=== PATIENT | female | born 1985 | race African-American/Black ===

== ENCOUNTER 2017-02-10 00:32 | Emergency (ER) | payer MEDICAID ==
[~2017-02-10] VITALS: Ht 162.6 cm; Wt 92.1 kg
[2017-02-10 00:59] VITALS: BP 144/94
[2017-02-10] MEDS ORDERED: LORazepam Inj 2mg/ml 1ml IM ONE (01:00)
[2017-02-10] MEDS ORDERED: MOBIC15 MG ORAL (01:35)
--- NOTE | 2017-02-10 01:36 | Emergency Room Report ---
History of Present Illness General Chief Complaint: Chest Pain Source: Patient Present Illness HPI Is a 31-year-old female with history anxiety. She presents with chief complaint of jaw pain and no chest pain. 2 days ago she was yawning and back pain the neck. It progressively gotten worse. Now she is anxious and worried. She is having some chest pain. Chest tightness. No fever or chills. No nausea vomiting. Worse with movement of her neck. Denies any other complaint. No exertional component. No diaphoresis. Allergies: Coded Allergies: No Known Allergies (Unverified , 02/10/17) Patient History Past Medical History: see triage record, old chart reviewed, psych hx Past Surgical History: none Pertinent Family History: none Social History: Denies: smoking Last Menstrual Period: LAST WEEK Now: No Immunizations: other Reviewed Nursing Documentation: PMH: Agreed, PSxH: Agreed Nursing Documentation-PMH Past Medical History: No Stated History Review of Systems Eye: Denies: blurred vision, eye pain ENT: Denies: ear pain, nose congestion, throat swelling Respiratory: Denies: cough, shortness of breath Cardiovascular: Reports: chest pain, Denies: palpitations Gastrointestinal: Denies: abdominal pain, diarrhea, nausea, vomiting Musculoskeletal: Denies: back pain, joint pain Skin: Denies: rash Neurological: Denies: headache, numbness Endocrine: Denies: increased thirst, increased urine Hematologic/Lymphatic: Denies: easy bruising All Other Systems: negative except mentioned in HPI Physical Exam Vital Signs Date Time Temp Pulse Resp B/P Pulse Ox O2 Delivery O2 Flow Rate FiO2 02/10/17 00:36 98.2 93 18 162/87 100 Room Air vitals normal except for hypertension Sp02 EP Interpretation: reviewed, normal General Appearance: well appearing, no apparent distress, alert Head: normocephalic, atraumatic Eyes: bilateral eye EOMI, bilateral eye PERRL ENT: hearing grossly normal, normal pharynx Neck: full range of motion, supple, no meningismus, tender - Along the lateral neck muscle Respiratory: chest non-tender, lungs clear, normal breath sounds Cardiovascular #1: regular rate, rhythm, no murmur Gastrointestinal: normal bowel sounds, non tender, no mass, no organomegaly, no bruit, non-distended Musculoskeletal: back normal, gait/station normal, normal range of motion Psychiatric: anxious Skin: warm/dry Medical Decision Making Diagnostic Impression: Primary Impression: Chest pain Qualified Codes: R07.9 - Chest pain, unspecified Additional Impressions: Neck pain on left side Anxiety ER Course Patient with chest pain and neck pain. No evidence of trauma. No evidence of ACS, PE, dissection. Worsened by anxiety. Better after Ativan. We'll discharge home. EKG Diagnostic Results Rate: normal Rhythm: NSR ST Segments: no acute changes Rhythm Strip Diag. Results EP Interpretation: yes Rate: 80 Rhythm: NSR, no PVC's, no ectopy Last Vital Signs Date Time Temp Pulse Resp B/P Pulse Ox O2 Delivery O2 Flow Rate FiO2 02/10/17 00:59 98.2 85 29 144/94 100 Room Air Status: improved Disposition: HOME, SELF-CARE Condition: Stable Scripts Meloxicam* (MOBIC*) 15 Mg Tablet 15 MG ORAL DAILY, #30 TAB 0 Refills Prov: CLARA DALTON M.D. 02/10/17 Additional Instructions: Followup with your DrSergey in 7 days. Return if worse. CLARA DALTON M.D. February 10, 2017 01:36
[2017-02-10 01:44] VITALS: BP 144/94
== END 2017-02-10 01:24 | disposition home or self-care (01) ==
LOC: EMR 00:55
DX: R07.9 Chest pain, unspecified (principal); M54.2 Cervicalgia; F41.9 Anxiety disorder, unspecified; R68.84 Jaw pain
CPT/HCPCS: 93005; 96372; 99283

== ENCOUNTER 2018-07-05 16:09 | Inpatient (IN) | payer MEDICAID ==
[~2018-07-05] VITALS: Ht 162.6 cm; Wt 81.6 kg
[~2018-07-05 16:09] MED LIST: MOBIC15 MG ORAL
[2018-07-05] MEDS ORDERED: Morphine Sulfate 2mg/ml Inj IVP ONE ×2 (16:30→20:30)
[2018-07-05 16:52] LABS: APPEARANCE,URINE CLEAR; BILIRUBIN, URINE NEGATIVE (NEGATIVE); COLOR,URINE PALE YELLOW; GLUCOSE, URINE (UA) NEGATIVE (NEGATIVE); KETONES,URINE NEGATIVE (NEGATIVE); LEUKOCYTE ESTERASE ,URINE NEGATIVE (NEGATIVE); NITRITE,URINE NEGATIVE (NEGATIVE); PH,URINE 7 (4.5-8.0); PROTEIN,URINE NEGATIVE (NEGATIVE); UROBILINOGEN,URINE NORMAL MG/DL (0.0-1.0)
[2018-07-05 16:56] LABS: BASOPHILS % (AUTO) 1.6 % (0.0-2.0); EOSINOPHILS % (AUTO) 0.3 % (0.0-3.0); HEMATOCRIT 37.5 % (37.0-47.0); HEMOGLOBIN 12.3 G/DL (12.0-16.0); LYMPHOCYTES % (AUTO) 12.5 % (20.0-45.0); MEAN CORPUSCULAR VOLUME 81 FL (80-99); MONOCYTES % (AUTO) 4.4 % (1.0-10.0); NEUTROPHILS % (AUTO) 81.3 % (45.0-75.0); PLATELET COUNT 317 K/UL (150-450); RED BLOOD COUNT 4.65 M/UL (4.20-5.40); RED CELL DISTRIBUTION WIDTH 11.9 % (11.6-14.8); WHITE BLOOD COUNT 13.9 K/UL (4.8-10.8)
[2018-07-05 17:08] LABS: ANION GAP 8 mmol/L (5-15); BLOOD UREA NITROGEN 8 mg/dL (7-18); CARBON DIOXIDE 25 MMOL/L (21-32); CHLORIDE 102 MMOL/L (98-107); CREATININE 0.9 MG/DL (0.55-1.30); POTASSIUM 3.4 MMOL/L (3.5-5.1); SODIUM 135 MMOL/L (136-145)
[2018-07-05 17:15] LABS: ALANINE AMINOTRANSFERASE 19 U/L (12-78); ALBUMIN 3.8 G/DL (3.4-5.0); ALBUMIN/GLOBULIN RATIO 0.9 (1.0-2.7); ALKALINE PHOSPHATASE 53 U/L (46-116); ASPARTATE AMINO TRANSFERASE 14 U/L (15-37); BILIRUBIN,TOTAL 0.7 MG/DL (0.2-1.0)
[2018-07-05 17:25] VITALS: BP 125/81
--- NOTE | 2018-07-05 18:15 | Emergency Room Report ---
History of Present Illness General Chief Complaint: Abdominal Pain Source: Patient Present Illness HPI Patient presents emergency department today complaint suprapubic and left upper quadrant abdominal pain. Patient states that she hasn't felt well since today. She feels like the pain is pulling. Seems to be worsened movement. She denies any diarrhea nausea vomiting diarrhea or chills. Denies any dysuria or urinary frequency. Denies having vaginal bleeding or vaginal discharge. She states that she had her period about a week ago. Patient is . No prior history of surgery.No other modifying factors. No other associated signs and symptoms. No other complaints were noted. Allergies: Coded Allergies: No Known Allergies (Unverified , 07/05/18) Patient History Past Medical History: none Past Surgical History: none Pertinent Family History: none Social History: Denies: smoking, alcohol use, drug use Last Menstrual Period: Jun 27, 2018 Reviewed Nursing Documentation: PMH: Agreed; PSxH: Agreed Nursing Documentation-PMH Past Medical History: No Stated History Review of Systems All Other Systems: negative except mentioned in HPI Physical Exam Vital Signs Date Time Temp Pulse Resp B/P (MAP) Pulse Ox O2 Delivery O2 Flow Rate FiO2 07/05/18 16:12 98.9 102 15 149/90 99 Room Air 99.0 Sp02 EP Interpretation: reviewed, normal General Appearance: normal inspection, well appearing, no apparent distress, alert Head: atraumatic Eyes: bilateral eye normal inspection ENT: normal ENT inspection, hearing grossly normal, normal voice Neck: normal inspection, full range of motion, supple, no bony tend Respiratory: normal inspection, lungs clear, normal breath sounds, no respiratory distress, no retraction, no wheezing Cardiovascular #1: regular rate, rhythm, no edema Gastrointestinal: normal inspection, normal bowel sounds, soft, no guarding, no hernia, tenderness - Right lower quadrant, Suprapubic left lower quadrant, left upper quadrant Genitourinary: no CVA tenderness Musculoskeletal: normal inspection, back normal, normal range of motion Neurologic: normal inspection, alert, responsive, speech normal Psychiatric: normal inspection, judgement/insight normal, mood/affect normal Skin: normal inspection, normal color, no rash Medical Decision Making Diagnostic Impression: Primary Impression: Appendicitis ER Course Patient presents to the emergency department today complaining of abdominal pain. Differential considerations include acute pancreatitis, cholecystitis, gastritis, hepatitis, appendicitis just to name a few. Given the severity of the patient's presentation I felt this is a highly complex patient. This patient required extensive workup. Patient laboratory workup shows an elevated white blood cell count. Patient's exam concerning for appendicitis. CAT scan was performed which was positive appendicitis. Patient was given Zosyn. Case was discussed with Dr. Corrales and will admit Steve. Case discussed with patient insurance Dr. Khan. Admit Yumi. Labs Test 07/05/18 16:45 White Blood Count 13.9 K/UL (4.8-10.8) Red Blood Count 4.65 M/UL (4.20-5.40) Hemoglobin 12.3 G/DL (12.0-16.0) Hematocrit 37.5 % (37.0-47.0) Mean Corpuscular Volume 81 FL (80-99) Mean Corpuscular Hemoglobin 26.5 PG (27.0-31.0) Mean Corpuscular Hemoglobin Concent 32.8 G/DL (32.0-36.0) Red Cell Distribution Width 11.9 % (11.6-14.8) Platelet Count 317 K/UL (150-450) Mean Platelet Volume 7.4 FL (6.5-10.1) Neutrophils (%) (Auto) 81.3 % (45.0-75.0) Lymphocytes (%) (Auto) 12.5 % (20.0-45.0) Monocytes (%) (Auto) 4.4 % (1.0-10.0) Eosinophils (%) (Auto) 0.3 % (0.0-3.0) Basophils (%) (Auto) 1.6 % (0.0-2.0) Urine Color Pale yellow Urine Appearance Clear Urine pH 7 (4.5-8.0) Urine Specific [place] 1.005 (1.005-1.035) Urine Protein Negative (NEGATIVE) Urine Glucose (UA) Negative (NEGATIVE) Urine Ketones Negative (NEGATIVE) Urine Blood Negative (NEGATIVE) Urine Nitrite Negative (NEGATIVE) Urine Bilirubin Negative (NEGATIVE) Urine Urobilinogen Normal MG/DL (0.0-1.0) Urine Leukocyte Esterase Negative (NEGATIVE) Urine HCG, Qualitative Negative (NEGATIVE) Sodium Level 135 MMOL/L (136-145) Potassium Level 3.4 MMOL/L (3.5-5.1) Chloride Level 102 MMOL/L (98-107) Carbon Dioxide Level 25 MMOL/L (21-32) Anion Gap 8 mmol/L (5-15) Blood Urea Nitrogen 8 mg/dL (7-18) Creatinine 0.9 MG/DL (0.55-1.30) Estimat Glomerular Filtration Rate > 60 mL/min (>60) Glucose Level 113 MG/DL (74-106) Calcium Level 9.0 MG/DL (8.5-10.1) Total Bilirubin 0.7 MG/DL (0.2-1.0) Aspartate Amino Transf (AST/SGOT) 14 U/L (15-37) Alanine Aminotransferase (ALT/SGPT) 19 U/L (12-78) Alkaline Phosphatase 53 U/L (46-116) Total Protein 8.0 G/DL (6.4-8.2) Albumin 3.8 G/DL (3.4-5.0) Globulin 4.2 g/dL Albumin/Globulin Ratio 0.9 (1.0-2.7) Lipase 101 U/L (73-393) CT/MRI/US Diagnostic Results CT/MRI/US Diagnostic Results : Imaging Test Ordered: Positive appendicitisOn CT scan Last Vital Signs Date Time Temp Pulse Resp B/P (MAP) Pulse Ox O2 Delivery O2 Flow Rate FiO2 07/05/18 17:25 98.0 89 15 125/81 99 Room Air 98.0 Status: improved Disposition: ADMITTED INPATIENT Condition: Serious Referrals: NGHIA RODRIGUEZ,REFERRING (PCP) Eric Awan MD Jul 05, 2018 18:15
[2018-07-05] MEDS ORDERED: Piperacillin/Tazobactam 3.375 GM in NS 110 ML IVPB ONE (18:45)
[2018-07-05 18:52] VITALS: BP 109/71
[2018-07-05] MEDS ORDERED: TYLENOL EXTRA500 MG ORAL (19:02)
[2018-07-05] MEDS ORDERED: TUMS200 M1 PO (19:04)
[2018-07-05] MEDS ORDERED: Morphine Sulfate 2mg/ml Inj ONE (20:06)
[2018-07-05 21:00] VITALS: BP 108/51
[2018-07-05 21:15] VITALS: BP 125/80
[2018-07-05] MEDS ORDERED: D5 1/2NS 1,000 ML IV SCH (22:00)
[2018-07-05] MEDS ORDERED: Morphine Sulfate 2mg/ml Inj IVP PRN (23:15)
[2018-07-06] VITALS (12 sets, daily range): BP systolic 96–133; BP diastolic 53–94
[2018-07-06] MEDS: Piperacillin/Tazobactam 3.375 GM in D5W 110 ML IVPB SCH ×3 (02:52→20:19)
[2018-07-06] MEDS ORDERED: Hydromorphone 0.5mg/0.5ml inj IVP PRN (06:45)
[2018-07-06] MEDS ORDERED: Metoclopramide 10mg/2ml Inj IVP PRN (06:45)
[2018-07-06] MEDS ORDERED: fentaNYL 100 mcg/2 mL IV PRN (06:45)
--- NOTE | 2018-07-06 06:48 | Anethesia Preoperative Eval ---
Anesthesia Pre-op PMH/ROS General Date of Evaluation: Jul 06, 2018 Time of Evaluation: 06:47 Anesthesiologist: parviz ASA Score: ASA 2 Mallampati Score Class I : Soft palate, uvula, fauces, pillars visible Class II: Soft palate, uvula, fauces visible Class III: Soft palate, base of uvula visible Class IV: Only hard plate visible Mallampati Classification: Class II Surgeon: buddy Diagnosis: appendicitis Surgical Procedure: lap appendectomy Anesthesia History: none Family History: no anesthesia problems Allergies: Coded Allergies: No Known Allergies (Unverified , 07/05/18) Medications: see eMAR Patient NPO?: Yes NPO Date: Jul 06, 2018 NPO Time: 0000 Past Medical History Cardiovascular: Denies: HTN, CAD, PA, valve dz, arrhythmia, other Pulmonary: Denies: asthma, COPD, SILAS, other Gastrointestinal/Genitourinary: Denies: GERD, CRI, ESRD, other Neurologic/Psychiatric: Denies: dementia, CVA, depression/anxiety, TIA, other Endocrine: Denies: DM, hypothyroidism, steroids, other HEENT: Denies: cataract (L), cataract (R), glaucoma, [place] (L), [place] (R), other Hematology/Immune: Denies: anemia, DVT, bleeding disorder, other Musculoskeletal/Integumentary: Denies: OA, RA, DJD, DDD, edema, other PSxH Narrative: denies Anesthesia Pre-op Phys. Exam Physician Exam Last Vital Signs Date Time Temp Pulse Resp B/P (MAP) Pulse Ox O2 Delivery O2 Flow Rate FiO2 07/06/18 04:00 97.8 71 19 109/53 (71) 97 97.8 07/05/18 21:48 Room Air Constitutional: NAD Neurologic: CN 2-12 intact Cardiovascular: RRR Respiratory: CTA Gastrointestinal: S/NT/ND Airway Exam Mallampati Classification 2 Mallampati Score: Class II MO: full ROM: full Dentures: no upper, no lower Anesthesia Pre-op A/P Labs Hematology Test 07/05/18 16:45 White Blood Count 13.9 K/UL (4.8-10.8) H Red Blood Count 4.65 M/UL (4.20-5.40) Hemoglobin 12.3 G/DL (12.0-16.0) Hematocrit 37.5 % (37.0-47.0) Mean Corpuscular Volume 81 FL (80-99) Mean Corpuscular Hemoglobin 26.5 PG (27.0-31.0) L Mean Corpuscular Hemoglobin Concent 32.8 G/DL (32.0-36.0) Red Cell Distribution Width 11.9 % (11.6-14.8) Platelet Count 317 K/UL (150-450) Mean Platelet Volume 7.4 FL (6.5-10.1) Neutrophils (%) (Auto) 81.3 % (45.0-75.0) H Lymphocytes (%) (Auto) 12.5 % (20.0-45.0) L Monocytes (%) (Auto) 4.4 % (1.0-10.0) Eosinophils (%) (Auto) 0.3 % (0.0-3.0) Basophils (%) (Auto) 1.6 % (0.0-2.0) Chemistry Test 07/05/18 16:45 Sodium Level 135 MMOL/L (136-145) L Potassium Level 3.4 MMOL/L (3.5-5.1) L Chloride Level 102 MMOL/L (98-107) Carbon Dioxide Level 25 MMOL/L (21-32) Anion Gap 8 mmol/L (5-15) Blood Urea Nitrogen 8 mg/dL (7-18) Creatinine 0.9 MG/DL (0.55-1.30) Estimat Glomerular Filtration Rate > 60 mL/min (>60) Glucose Level 113 MG/DL (74-106) H Calcium Level 9.0 MG/DL (8.5-10.1) Total Bilirubin 0.7 MG/DL (0.2-1.0) Aspartate Amino Transf (AST/SGOT) 14 U/L (15-37) L Alanine Aminotransferase (ALT/SGPT) 19 U/L (12-78) Alkaline Phosphatase 53 U/L (46-116) Total Protein 8.0 G/DL (6.4-8.2) Albumin 3.8 G/DL (3.4-5.0) Globulin 4.2 g/dL Albumin/Globulin Ratio 0.9 (1.0-2.7) L Lipase 101 U/L (73-393) Urine Test Test 07/05/18 16:45 Urine HCG, Qualitative Negative (NEGATIVE) Studies Pre-op Studies: EKG - sr Risk Assessment & Plan Plan: general Status Change Before Surgery: No Pre-Antibiotics Drug: ancef Given Within 1 Hr of Incision: Yes Time Given: 07:05 Heather Hayward CRNA Jul 06, 2018 06:48
[2018-07-06] MEDS ORDERED: Zemuron 50mg/5ml Inj IV ONE (06:51)
[2018-07-06] MEDS ORDERED: Bupivacaine w/Epi 0.25% 30ml Vial INJ ONE (06:56)
--- NOTE | 2018-07-06 07:09 | Consultation ---
History of Present Illness General Date patient seen: Jul 06, 2018 Chief Complaint: Abdominal Pain Reason for Consultation: acute appendicitis Present Illness HPI 32 year old otherwise healthy female presented to ED with complaints of worsening abdominal pain. States pain began at 5am yesterday morning as mid/ llq abdominal pain. Initially believed it to be gas but as pain worsening it began to migrate to the RLQ. As pain did not improve she came to ED for evaluation. In ED noted to have leukocytosis and CT scan demonstrated appendicitis. surgery called to evaluate. patient seen, chart reviewed, patient examined. Allergies: Coded Allergies: No Known Allergies (Unverified , 07/05/18) Medication History Scheduled Acetaminophen* (Tylenol Extra Strength*), 500 MG ORAL PRN, (Reported) Calcium Carbonate (Tums), Unknown Dose PO PRN, (Reported) Discontinued Medications Meloxicam* (Mobic*), 15 MG ORAL DAILY Discontinued Reason: Therapy completed Patient History History Provided By: Patient, Medical Record, PMD Healthcare decision maker Resuscitation status Advanced Directive on File Past Medical/Surgical History Past Medical/Surgical History: (1) Appendicitis Review of Systems All Other Systems: negative except mentioned in HPI Physical Exam General Appearance: no apparent distress, alert Lines, tubes and drains: peripheral HEENT: normocephalic, atraumatic, mucous membranes moist Neck: normal inspection Respiratory/Chest: normal breath sounds, no respiratory distress, no accessory muscle use Cardiovascular/Chest: normal rate, regular rhythm Abdomen: soft, no organomegaly, no mass, tender Extremities: normal inspection, no calf tenderness Skin Exam: normal pigmentation, warm/dry Neurologic: alert, oriented x 3, responsive Last 24 Hour Vital Signs Date Time Temp Pulse Resp B/P (MAP) Pulse Ox O2 Delivery O2 Flow Rate FiO2 07/06/18 04:00 97.8 71 19 109/53 (71) 97 97.8 07/06/18 00:00 98.7 96 20 133/83 (100) 100 98.7 07/05/18 21:48 Room Air 07/05/18 21:15 98.5 73 19 125/80 (95) 100 98.5 07/05/18 21:00 98.5 85 19 108/51 99 Room Air 98.5 07/05/18 21:00 98.5 85 19 108/51 99 Room Air 208.4 10/16/18 20:51 98.0 07/05/18 18:52 98.0 90 19 109/71 99 Room Air 98.0 07/05/18 18:51 98.0 07/05/18 17:25 98.0 89 15 125/81 99 Room Air 98.0 07/05/18 16:48 98.9 07/05/18 16:12 98.9 102 15 149/90 99 Room Air 99.0 Intake and Output 07/05/18 07/06/18 19:00 07:00 Intake Total 282.5 ml Balance 282.5 ml Intake IV Total 282.5 ml # Voids 1 3 Laboratory Tests Test 07/05/18 16:45 White Blood Count 13.9 K/UL (4.8-10.8) H Red Blood Count 4.65 M/UL (4.20-5.40) Hemoglobin 12.3 G/DL (12.0-16.0) Hematocrit 37.5 % (37.0-47.0) Mean Corpuscular Volume 81 FL (80-99) Mean Corpuscular Hemoglobin 26.5 PG (27.0-31.0) L Mean Corpuscular Hemoglobin Concent 32.8 G/DL (32.0-36.0) Red Cell Distribution Width 11.9 % (11.6-14.8) Platelet Count 317 K/UL (150-450) Mean Platelet Volume 7.4 FL (6.5-10.1) Neutrophils (%) (Auto) 81.3 % (45.0-75.0) H Lymphocytes (%) (Auto) 12.5 % (20.0-45.0) L Monocytes (%) (Auto) 4.4 % (1.0-10.0) Eosinophils (%) (Auto) 0.3 % (0.0-3.0) Basophils (%) (Auto) 1.6 % (0.0-2.0) Urine Color Pale yellow Urine Appearance Clear Urine pH 7 (4.5-8.0) Urine Specific [place] 1.005 (1.005-1.035) Urine Protein Negative (NEGATIVE) Urine Glucose (UA) Negative (NEGATIVE) Urine Ketones Negative (NEGATIVE) Urine Blood Negative (NEGATIVE) Urine Nitrite Negative (NEGATIVE) Urine Bilirubin Negative (NEGATIVE) Urine Urobilinogen Normal MG/DL (0.0-1.0) Urine Leukocyte Esterase Negative (NEGATIVE) Urine HCG, Qualitative Negative (NEGATIVE) Sodium Level 135 MMOL/L (136-145) L Potassium Level 3.4 MMOL/L (3.5-5.1) L Chloride Level 102 MMOL/L (98-107) Carbon Dioxide Level 25 MMOL/L (21-32) Anion Gap 8 mmol/L (5-15) Blood Urea Nitrogen 8 mg/dL (7-18) Creatinine 0.9 MG/DL (0.55-1.30) Estimat Glomerular Filtration Rate > 60 mL/min (>60) Glucose Level 113 MG/DL (74-106) H Calcium Level 9.0 MG/DL (8.5-10.1) Total Bilirubin 0.7 MG/DL (0.2-1.0) Aspartate Amino Transf (AST/SGOT) 14 U/L (15-37) L Alanine Aminotransferase (ALT/SGPT) 19 U/L (12-78) Alkaline Phosphatase 53 U/L (46-116) Total Protein 8.0 G/DL (6.4-8.2) Albumin 3.8 G/DL (3.4-5.0) Globulin 4.2 g/dL Albumin/Globulin Ratio 0.9 (1.0-2.7) L Lipase 101 U/L (73-393) Height (Feet): 5 Height (Inches): 4.00 Weight (Pounds): 180 Medications Current Medications Medications (Trade) Dose Ordered Sig/[place] Route PRN Reason Start Time Stop Time Status Last Admin Dose Admin Acetaminophen (Tylenol) 650 mg Q4H PRN ORAL Mild Pain/Temp > 100.5 07/05/18 22:00 08/04/18 21:59 Dextrose/Sodium Chloride 1,000 ml @ 100 mls/hr Q10H IV 07/06/18 00:00 08/05/18 21:59 07/06/18 00:00 Fentanyl Citrate (Sublimaze 100 mcg/2 mL) 25 mcg Q10M PRN IV Moderate Pain (Pain Scale 4-6) 07/06/18 06:45 07/06/18 15:00 Hydromorphone HCl (Dilaudid) 0.5 mg Q15M PRN IVP Severe Pain (Pain Scale 7-10) 07/06/18 06:45 07/06/18 15:00 Metoclopramide HCl (Reglan) 10 mg Q1H PRN IVP Nausea & Vomiting 07/06/18 06:45 07/06/18 15:00 Morphine Sulfate (Morphine Sulfate) 2 mg Q4H PRN IVP For Pain 07/05/18 23:15 07/12/18 23:14 07/06/18 03:00 Ondansetron HCl (Zofran) 4 mg Q1H PRN IVP Nausea & Vomiting 07/06/18 06:45 07/06/18 15:00 Ondansetron HCl (Zofran) 4 mg Q6H PRN IVP Nausea & Vomiting 07/05/18 23:15 08/04/18 23:14 Piperacillin Sod/ Tazobactam Sod 3.375 gm/Dextrose 110 ml @ 27.5 mls/hr Q8H IVPB 07/06/18 03:00 07/13/18 02:59 07/06/18 02:52 Assessment/Plan Problem List: (1) Appendicitis Assessment & Plan: 32F acute appendicitis. afebrile, HD stable, labs noted, CT noted, exam as above NPO IV fluids To OR for lap vs open appy consent thank you ICD Codes: K37 - Unspecified appendicitis SNOMED: [id number] Qualifiers: Qualified Codes: K35.3 - Acute appendicitis with localized peritonitis Status: stable Camilo Corrales Jul 06, 2018 07:09
--- NOTE | 2018-07-06 07:10 | Pre-Procedure Note/Attestation ---
Pre-Procedure Note/Attestation Complete Prior to Procedure Planned Procedure: not applicable Procedure Narrative: laparoscopic possible open appendectomy Indications for Procedure Pre-Operative Diagnosis: acute appendicitis Attestation I attest that I discussed the nature of the procedure; its benefits; risks and complications; and alternatives (and the risks and benefits of such alternatives ), prior to the procedure, with the patient (or the patient's legal sales representative consultant). I attest that, if there was a reasonable possibility of needing a blood transfusion, the patient (or the patient's legal sales representative consultant) was given the [facility] standardized written summary, pursuant to the [place] Blood Safety Act ([place] Health and Safety Code # 1645, as amended). I attest that I re-evaluated the patient just prior to the surgery and that there has been no change in the patient's H&P, except as documented below: Camilo Corrales Jul 06, 2018 07:10
[2018-07-06] MEDS ORDERED: fentaNYL 100 mcg/2 mL IV ONE ×2 (07:22→07:33)
[2018-07-06] MEDS ORDERED: Propofol 200mg/20ml IV ONE (07:40)
[2018-07-06] MEDS ORDERED: Ketorolac 30mg Inj ONE (07:40)
[2018-07-06] MEDS ORDERED: Metoclopramide 10mg/2ml Inj ONE (07:40)
[2018-07-06] MEDS ORDERED: Lidocaine 1% MPF 10mg/ml 5ml ONE (07:40)
[2018-07-06] MEDS ORDERED: Glycopyrrolate 0.2mg/ml 1ml Vial ONE (08:05)
[2018-07-06] MEDS ORDERED: Neostigmine 1mg/ml 10ml Inj ONE (08:05)
--- NOTE | 2018-07-06 08:33 | Brief Operative Note ---
Immediate Post Operative Note Operative Note Pre-op Diagnosis: acute appendicitis Procedure: laparoscopic appendectomy Post-op Diagnosis: same as pre-op Surgeon: coral Anesthesiologist: Sierra Romero Anesthesia: general Specimen: yes Complications: none Condition: stable Fluids: see records Estimated Blood Loss: minimal Drains: none Implant(s) used?: No Camilo Corrales Jul 06, 2018 08:33
--- NOTE | 2018-07-06 08:36 | Immediate Post-Op Evaluation ---
Immediate Post-Op Evalulation Immediate Post-Op Evalulation Procedure: Laparoscopic appendectomy Date of Evaluation: Jul 06, 2018 Time of Evaluation: 08:25 IV Fluids: LR 1000ml Estimated Blood Loss: 10 Urinary Output: no rosas Blood Pressure Systolic: 096 Blood Pressure Diastolic: 63 Pulse Rate: 94 Respiratory Rate: 23 O2 Sat by Pulse Oximetry: 99 Temperature (Fahrenheit): 98.7 Pain Score (1-10): 2 Nausea: No Vomiting: No Complications none Patient Status: awake, reacts, patent, extubated Hydration Status: adequate Drug: cefazolin 2 gm Given Within 1 Hr of Incision: Yes Time Given: 07:10 Luana Christianson CRNA Jul 06, 2018 08:36
[2018-07-06] MEDS ORDERED: Milk of Magnesia 30ml Ud ORAL PRN (08:45)
[2018-07-06] MEDS ORDERED: Morphine Sulfate 2mg/ml Inj IVP PRN ×2 (08:45)
[2018-07-06] MEDS ORDERED: Ketorolac 30mg Inj IV PRN (08:45)
[2018-07-06] MEDS ORDERED: Morphine Sulfate 4mg/ml Inj (IV/IM USE ONLY) IVP PRN (08:45)
[2018-07-06] MEDS ORDERED: DiphenhydrAMINE 50mg/ml Inj IVP PRN (08:45)
[2018-07-06] MEDS ORDERED: HYDROcodone/Acetamin 10/325 tab ORAL PRN (08:45)
[2018-07-06] MEDS ORDERED: Norco 5mg/325mg tab ORAL PRN (08:45)
--- NOTE | 2018-07-06 08:56 | Consultation ---
History of Present Illness General Date patient seen: Jul 06, 2018 Present Illness Allergies: Coded Allergies: No Known Allergies (Unverified , 07/05/18) Medication History Scheduled Acetaminophen* (Tylenol Extra Strength*), 500 MG ORAL PRN, (Reported) Calcium Carbonate (Tums), Unknown Dose PO PRN, (Reported) Discontinued Medications Meloxicam* (Mobic*), 15 MG ORAL DAILY Discontinued Reason: Therapy completed Patient History Healthcare decision maker Resuscitation status Advanced Directive on File Physical Exam Last 24 Hour Vital Signs Date Time Temp Pulse Resp B/P (MAP) Pulse Ox O2 Delivery O2 Flow Rate FiO2 07/06/18 08:45 85 18 114/66 100 Room Air 07/06/18 08:36 209.7 94 23 99 07/06/18 08:35 85 20 112/66 100 Simple Mask 6 07/06/18 08:30 89 21 108/64 100 Simple Mask 6 07/06/18 08:24 98.2 94 23 96/63 100 Simple Mask 6 98.2 07/06/18 04:00 97.8 71 19 109/53 (71) 97 97.8 07/06/18 00:00 98.7 96 20 133/83 (100) 100 98.7 07/05/18 21:48 Room Air 07/05/18 21:15 98.5 73 19 125/80 (95) 100 98.5 07/05/18 21:00 98.5 85 19 108/51 99 Room Air 98.5 07/05/18 21:00 98.5 85 19 108/51 99 Room Air 208.4 07/05/18 20:51 98.0 07/05/18 18:52 98.0 90 19 109/71 99 Room Air 98.0 07/05/18 18:51 98.0 07/05/18 17:25 98.0 89 15 125/81 99 Room Air 98.0 07/05/18 16:48 98.9 07/05/18 16:12 98.9 102 15 149/90 99 Room Air 99.0 Intake and Output 07/05/18 07/06/18 19:00 07:00 Intake Total 282.5 ml Balance 282.5 ml Intake IV Total 282.5 ml # Voids 1 3 Laboratory Tests Test 07/05/18 16:45 White Blood Count 13.9 K/UL (4.8-10.8) H Red Blood Count 4.65 M/UL (4.20-5.40) Hemoglobin 12.3 G/DL (12.0-16.0) Hematocrit 37.5 % (37.0-47.0) Mean Corpuscular Volume 81 FL (80-99) Mean Corpuscular Hemoglobin 26.5 PG (27.0-31.0) L Mean Corpuscular Hemoglobin Concent 32.8 G/DL (32.0-36.0) Red Cell Distribution Width 11.9 % (11.6-14.8) Platelet Count 317 K/UL (150-450) Mean Platelet Volume 7.4 FL (6.5-10.1) Neutrophils (%) (Auto) 81.3 % (45.0-75.0) H Lymphocytes (%) (Auto) 12.5 % (20.0-45.0) L Monocytes (%) (Auto) 4.4 % (1.0-10.0) Eosinophils (%) (Auto) 0.3 % (0.0-3.0) Basophils (%) (Auto) 1.6 % (0.0-2.0) Urine Color Pale yellow Urine Appearance Clear Urine pH 7 (4.5-8.0) Urine Specific [place] 1.005 (1.005-1.035) Urine Protein Negative (NEGATIVE) Urine Glucose (UA) Negative (NEGATIVE) Urine Ketones Negative (NEGATIVE) Urine Blood Negative (NEGATIVE) Urine Nitrite Negative (NEGATIVE) Urine Bilirubin Negative (NEGATIVE) Urine Urobilinogen Normal MG/DL (0.0-1.0) Urine Leukocyte Esterase Negative (NEGATIVE) Urine HCG, Qualitative Negative (NEGATIVE) Sodium Level 135 MMOL/L (136-145) L Potassium Level 3.4 MMOL/L (3.5-5.1) L Chloride Level 102 MMOL/L (98-107) Carbon Dioxide Level 25 MMOL/L (21-32) Anion Gap 8 mmol/L (5-15) Blood Urea Nitrogen 8 mg/dL (7-18) Creatinine 0.9 MG/DL (0.55-1.30) Estimat Glomerular Filtration Rate > 60 mL/min (>60) Glucose Level 113 MG/DL (74-106) H Calcium Level 9.0 MG/DL (8.5-10.1) Total Bilirubin 0.7 MG/DL (0.2-1.0) Aspartate Amino Transf (AST/SGOT) 14 U/L (15-37) L Alanine Aminotransferase (ALT/SGPT) 19 U/L (12-78) Alkaline Phosphatase 53 U/L (46-116) Total Protein 8.0 G/DL (6.4-8.2) Albumin 3.8 G/DL (3.4-5.0) Globulin 4.2 g/dL Albumin/Globulin Ratio 0.9 (1.0-2.7) L Lipase 101 U/L (73-393) Height (Feet): 5 Height (Inches): 4.00 Weight (Pounds): 180 Medications Current Medications Medications (Trade) Dose Ordered Sig/Roldan Route PRN Reason Start Time Stop Time Status Last Admin Dose Admin Acetaminophen (Tylenol) 650 mg Q4H PRN ORAL Mild Pain/Temp > 100.5 07/05/18 22:00 08/04/18 21:59 Acetaminophen/ Hydrocodone Bitart ([place] 10/325) 1 tab Q4H PRN ORAL Severe Pain (Pain Scale 7-10) 07/06/18 08:45 07/13/18 08:44 Acetaminophen/ Hydrocodone Bitart ([place] 5/325) 1 tab Q4H PRN ORAL Moderate Pain (Pain Scale 4-6) 07/06/18 08:45 07/13/18 08:44 Al Hydroxide/Mg Hydroxide (Mylanta) 15 ml Q6H PRN ORAL DYSPEPSIA 07/06/18 08:45 08/05/18 08:44 Dextrose/Sodium Chloride 1,000 ml @ 100 mls/hr Q10H IV 07/06/18 00:00 08/05/18 21:59 07/06/18 00:00 Diphenhydramine HCl (Benadryl) 12.5 mg Q6H PRN IVP Itching/Pruritis 07/06/18 08:45 08/05/18 08:44 Docusate Sodium (Colace) 100 mg TWICE A DAY ORAL 07/06/18 18:00 08/05/18 17:59 Fentanyl Citrate (Sublimaze 100 mcg/2 mL) 25 mcg Q10M PRN IV Moderate Pain (Pain Scale 4-6) 07/06/18 06:45 07/06/18 15:00 Hydromorphone HCl (Dilaudid) 0.5 mg Q15M PRN IVP Severe Pain (Pain Scale 7-10) 07/06/18 06:45 07/06/18 15:00 Ketorolac Tromethamine (Toradol 30mg) 15 mg Q6H PRN IV For breakthrough Pain 07/06/18 08:45 07/11/18 08:44 Magnesium Hydroxide (Mom) 30 ml BIDPRN PRN ORAL Constipation 07/06/18 08:45 08/05/18 08:44 Metoclopramide HCl (Reglan) 10 mg Q1H PRN IVP Nausea & Vomiting 07/06/18 06:45 07/06/18 15:00 Morphine Sulfate (Morphine Sulfate) 1 mg Q4H PRN IVP pain scale 1-3 07/06/18 08:45 07/13/18 08:44 Morphine Sulfate (Morphine Sulfate) 2 mg Q4H PRN IVP pain scale 4-6 07/06/18 08:45 07/13/18 08:44 Morphine Sulfate (Morphine Sulfate) 4 mg Q4H PRN IVP pain score 7-10 07/06/18 08:45 07/13/18 08:44 Ondansetron HCl (Zofran) 4 mg Q1H PRN IVP Nausea & Vomiting 07/06/18 06:45 07/06/18 15:00 Ondansetron HCl (Zofran) 4 mg Q6H PRN IVP Nausea & Vomiting 07/05/18 23:15 08/04/18 23:14 Piperacillin Sod/ Tazobactam Sod 3.375 gm/Dextrose 110 ml @ 27.5 mls/hr Q8H IVPB 07/06/18 03:00 07/13/18 02:59 07/06/18 02:52 Assessment/Plan Assessment/Plan (1) Abdominal pain (2) Appendicitis (3) S/p Appendectomy seen dictated Damian Beard Jul 06, 2018 08:56
--- NOTE | 2018-07-06 09:39 | Diagnostic Imaging Report ---
Indication: Abdominal pain Technique: Spiral acquisitions obtained through the abdomen and pelvis. No oral contrast utilized, per emergency room physician request No IV contrast utilized, per referring physician request.. Multiplanar reconstructions were generated. Total dose length product 899.98 mGycm. CTDIvol(s) 17.73 mGy. Dose reduction achieved using automated exposure control Comparison: None Findings: The appendix is dilated, measuring 15 mm in diameter, and there is an appendicolith at its base. There is periappendiceal inflammation. No periappendiceal fluid collections or extraluminal gas. No evidence of diverticulosis or diverticulitis. No small bowel distention. No free or loculated intraperitoneal gas is evident. There is trace free fluid in the pelvic cul-de-sac. Distal esophagus, stomach, duodenum are unremarkable. Small bowel loops are nondistended. Lack of IV contrast limits assessment of solid organs. Liver, gallbladder, bile ducts, pancreas, spleen, adrenals are all unremarkable. There is a subcentimeter left upper pole low-attenuation renal lesion which is too small to characterize. No retroperitoneal or mesenteric mass or adenopathy. No pelvic mass or adenopathy. Uterus and ovaries are unremarkable. The bladder is mildly distended. Impression: Findings consistent with uncomplicated acute appendicitis Trace free pelvic cul-de-sac fluid, presumably physiologic Subcentimeter low-attenuation left upper pole renal lesion, too small to characterize, most likely benign simple cysts. No further follow-up necessary This agrees with the preliminary interpretation provided overnight by Dr. Singer The CT scanner at [facility] is accredited by the [employer] and the scans are performed using protocols designed to limit radiation exposure to as low as reasonably achievable to attain images of sufficient resolution adequate for diagnostic evaluation.
[2018-07-06] MEDS: D5 1/2NS 1,000 ML IV SCH ×3 (10:00→13:16)
[2018-07-06] MEDS ORDERED: D5 1/2NS 1000ml IV ONE (11:37)
[2018-07-06] MEDS ORDERED: Tubing IV Secondary IV ONE (11:37)
--- NOTE | 2018-07-06 12:02 | GI Initial Consult Note ---
History of Present Illness General Date patient seen: Jul 06, 2018 Time patient seen: 11:59 Reason for Hospitalization: Abdominal Pain Referring physician: FELIX RAMIREZ Reason for Consultation: ABDOMINAL PAIN Present Illness HPI Patient presents emergency department today complaint suprapubic and left upper quadrant abdominal pain. Patient states that she hasn't felt well since today. She feels like the pain is pulling. Seems to be worsened movement. She denies any diarrhea nausea vomiting diarrhea or chills. Denies any dysuria or urinary frequency. Denies having vaginal bleeding or vaginal discharge. She states that she had her period about a week ago. Patient is . No prior history of surgery.No other modifying factors. No other associated signs and symptoms. No other complaints were noted. GI consulted for abdominal pain. Patient now s/p lap appy, seen awake A&Ox4 NAD with no active s/sx of post operative N/V. On regular diet, tolerating well. Pain is well controlled. All labs and imaging studies were reviewed. Patient has no prior history of endoscopy / colonoscopy. Home Meds Reported Medications Calcium Carbonate (TUMS) 200 Mg Tab.chew, PO PRN, TAB FOR ACID REFLUX 07/05/18 Acetaminophen* (TYLENOL EXTRA STRENGTH*) 500 Mg Tablet, 500 MG ORAL PRN, TAB FOR MILD PAIN 07/05/18 Discontinued Scripts Meloxicam* (MOBIC*) 15 Mg Tablet, 15 MG ORAL DAILY, #30 TAB 0 Refills Prov:Sukumar Echevarria MD 02/10/17 Med list reviewed/reconciled: Yes Allergies: Coded Allergies: No Known Allergies (Unverified , 07/05/18) Patient History History Provided By: Patient, Medical Record PMH Narrative Past Medical History: none Past Surgical History: none Pertinent Family History: none Social History: Denies: smoking, alcohol use, drug use Last Menstrual Period: Jun 27, 2018 Reviewed Nursing Documentation: PMH: Agreed; PSxH: Agreed Nursing Documentation-PMH Past Medical History: No Stated History Social History: Denies: smoking, alcohol use, drug use, other Review of Systems All Other Systems: negative except mentioned in HPI Physical Exam Vital Signs Date Time Temp Pulse Resp B/P (MAP) Pulse Ox O2 Delivery O2 Flow Rate FiO2 07/05/18 16:12 98.9 102 15 149/90 99 Room Air 99.0 07/06/18 08:24 6 Sp02 EP Interpretation: reviewed, normal Labs Laboratory Tests Test 07/05/18 16:45 White Blood Count 13.9 K/UL (4.8-10.8) H Red Blood Count 4.65 M/UL (4.20-5.40) Hemoglobin 12.3 G/DL (12.0-16.0) Hematocrit 37.5 % (37.0-47.0) Mean Corpuscular Volume 81 FL (80-99) Mean Corpuscular Hemoglobin 26.5 PG (27.0-31.0) L Mean Corpuscular Hemoglobin Concent 32.8 G/DL (32.0-36.0) Red Cell Distribution Width 11.9 % (11.6-14.8) Platelet Count 317 K/UL (150-450) Mean Platelet Volume 7.4 FL (6.5-10.1) Neutrophils (%) (Auto) 81.3 % (45.0-75.0) H Lymphocytes (%) (Auto) 12.5 % (20.0-45.0) L Monocytes (%) (Auto) 4.4 % (1.0-10.0) Eosinophils (%) (Auto) 0.3 % (0.0-3.0) Basophils (%) (Auto) 1.6 % (0.0-2.0) Urine Color Pale yellow Urine Appearance Clear Urine pH 7 (4.5-8.0) Urine Specific [place] 1.005 (1.005-1.035) Urine Protein Negative (NEGATIVE) Urine Glucose (UA) Negative (NEGATIVE) Urine Ketones Negative (NEGATIVE) Urine Blood Negative (NEGATIVE) Urine Nitrite Negative (NEGATIVE) Urine Bilirubin Negative (NEGATIVE) Urine Urobilinogen Normal MG/DL (0.0-1.0) Urine Leukocyte Esterase Negative (NEGATIVE) Urine HCG, Qualitative Negative (NEGATIVE) Sodium Level 135 MMOL/L (136-145) L Potassium Level 3.4 MMOL/L (3.5-5.1) L Chloride Level 102 MMOL/L (98-107) Carbon Dioxide Level 25 MMOL/L (21-32) Anion Gap 8 mmol/L (5-15) Blood Urea Nitrogen 8 mg/dL (7-18) Creatinine 0.9 MG/DL (0.55-1.30) Estimat Glomerular Filtration Rate > 60 mL/min (>60) Glucose Level 113 MG/DL (74-106) H Calcium Level 9.0 MG/DL (8.5-10.1) Total Bilirubin 0.7 MG/DL (0.2-1.0) Aspartate Amino Transf (AST/SGOT) 14 U/L (15-37) L Alanine Aminotransferase (ALT/SGPT) 19 U/L (12-78) Alkaline Phosphatase 53 U/L (46-116) Total Protein 8.0 G/DL (6.4-8.2) Albumin 3.8 G/DL (3.4-5.0) Globulin 4.2 g/dL Albumin/Globulin Ratio 0.9 (1.0-2.7) L Lipase 101 U/L (73-393) General Appearance: well appearing, no apparent distress, alert Head: normocephalic EENT: PERRL/EOMI, normal ENT inspection Neck: supple Respiratory: normal breath sounds, no respiratory distress Cardiovascular: normal rate Gastrointestinal: normal inspection, non tender, soft, normal bowel sounds, non -distended Rectal: deferred Genitourinary: no CVA tenderness Musculoskeletal: normal inspection, back normal Neurologic: normal inspection, alert, oriented x3, responsive Psychiatric: normal inspection, judgement/insight normal, memory normal Skin: normal inspection, normal color, no rash, warm/dry, palpation normal, well hydrated Lymphatic: normal inspection, no adenopathy Current Medications Current Medications Medications (Trade) Dose Ordered Sig/[place] Route PRN Reason Start Time Stop Time Status Last Admin Dose Admin Acetaminophen (Tylenol) 650 mg Q4H PRN ORAL Mild Pain/Temp > 100.5 07/05/18 22:00 08/04/18 21:59 Acetaminophen/ Hydrocodone Bitart ([place] 10/325) 1 tab Q4H PRN ORAL Severe Pain (Pain Scale 7-10) 07/06/18 08:45 07/13/18 08:44 Acetaminophen/ Hydrocodone Bitart ([place] 5/325) 1 tab Q4H PRN ORAL Moderate Pain (Pain Scale 4-6) 07/06/18 08:45 07/13/18 08:44 Al Hydroxide/Mg Hydroxide (Mylanta) 15 ml Q6H PRN ORAL DYSPEPSIA 07/06/18 08:45 08/05/18 08:44 Dextrose/Sodium Chloride 1,000 ml @ 100 mls/hr Q10H IV 07/06/18 00:00 08/05/18 21:59 07/06/18 00:00 Diphenhydramine HCl (Benadryl) 12.5 mg Q6H PRN IVP Itching/Pruritis 07/06/18 08:45 08/05/18 08:44 Docusate Sodium (Colace) 100 mg TWICE A DAY ORAL 07/06/18 18:00 08/05/18 17:59 Fentanyl Citrate (Sublimaze 100 mcg/2 mL) 25 mcg Q10M PRN IV Moderate Pain (Pain Scale 4-6) 07/06/18 06:45 07/06/18 15:00 Hydromorphone HCl (Dilaudid) 0.5 mg Q15M PRN IVP Severe Pain (Pain Scale 7-10) 07/06/18 06:45 07/06/18 15:00 Ketorolac Tromethamine (Toradol 30mg) 15 mg Q6H PRN IV For breakthrough Pain 07/06/18 08:45 07/11/18 08:44 Magnesium Hydroxide (Mom) 30 ml BIDPRN PRN ORAL Constipation 07/06/18 08:45 08/05/18 08:44 Metoclopramide HCl (Reglan) 10 mg Q1H PRN IVP Nausea & Vomiting 07/06/18 06:45 07/06/18 15:00 Morphine Sulfate (Morphine Sulfate) 1 mg Q4H PRN IVP pain scale 1-3 07/06/18 08:45 07/13/18 08:44 Morphine Sulfate (Morphine Sulfate) 2 mg Q4H PRN IVP pain scale 4-6 07/06/18 08:45 07/13/18 08:44 Morphine Sulfate (Morphine Sulfate) 4 mg Q4H PRN IVP pain score 7-10 07/06/18 08:45 07/13/18 08:44 Ondansetron HCl (Zofran) 4 mg Q1H PRN IVP Nausea & Vomiting 07/06/18 06:45 07/06/18 15:00 Ondansetron HCl (Zofran) 4 mg Q6H PRN IVP Nausea & Vomiting 07/05/18 23:15 08/04/18 23:14 Piperacillin Sod/ Tazobactam Sod 3.375 gm/Dextrose 110 ml @ 27.5 mls/hr Q8H IVPB 07/06/18 03:00 07/13/18 02:59 07/06/18 02:52 GI: Plan Problems: (1) Post-operative nausea and vomiting (2) Appendicitis Plan symptomatic treatment at this time pain mgmt zofran prn adv to regular diet, tolerating well ppi fu labs Discussed with Dr. Neal. Thank you for this patient referral, we will follow. The patient was seen and examined at bedside and all new and available data was reviewed in the patients chart. I agree with the above findings, impression and plan. (Patient seen earlier today. Signature stamp does not reflect patient encounter time.). - MD Swathi [facility] Jul 06, 2018 12:02
[2018-07-06 12:30] LABS: HEMATOCRIT 36.5 % (37.0-47.0); HEMOGLOBIN 11.8 G/DL (12.0-16.0); MEAN CORPUSCULAR VOLUME 79 FL (80-99); PLATELET COUNT 305 K/UL (150-450); RED BLOOD COUNT 4.61 M/UL (4.20-5.40); RED CELL DISTRIBUTION WIDTH 12.2 % (11.6-14.8); WHITE BLOOD COUNT 12.5 K/UL (4.8-10.8)
[2018-07-06 12:37] LABS: INR 1.1 (0.9-1.1)
[2018-07-06 12:44] LABS: ALANINE AMINOTRANSFERASE 13 U/L (12-78); ALBUMIN 3.2 G/DL (3.4-5.0); ALBUMIN/GLOBULIN RATIO 0.8 (1.0-2.7); ALKALINE PHOSPHATASE 51 U/L (46-116); ANION GAP 10 mmol/L (5-15); ASPARTATE AMINO TRANSFERASE 11 U/L (15-37); BILIRUBIN,TOTAL 0.5 MG/DL (0.2-1.0); BLOOD UREA NITROGEN 6 mg/dL (7-18); CALCIUM 8.3 MG/DL (8.5-10.1); CARBON DIOXIDE 26 MMOL/L (21-32); CHLORIDE 104 MMOL/L (98-107); CREATININE 0.9 MG/DL (0.55-1.30); POTASSIUM 3.5 MMOL/L (3.5-5.1); SODIUM 139 MMOL/L (136-145)
--- NOTE | 2018-07-06 16:15 | Operative Note - Dictated ---
DATE OF OPERATION: 07/06/2018 PREOPERATIVE DIAGNOSIS: Acute appendicitis. POSTOPERATIVE DIAGNOSIS: Acute uncomplicated appendicitis. OPERATION PERFORMED: Laparoscopic appendectomy. ATTENDING SURGEON: Camilo Corrales M.D. HARDWARE MANAGER: None. ANESTHESIOLOGIST: Heather Hayward CRNA. ANESTHESIA: General [employer]. ESTIMATED BLOOD LOSS: Minimal. IV FLUIDS: Please see anesthesia records. COMPLICATIONS: None. DRAINS: None. SPECIMENS: Appendix sent to pathology for review. WOUND CONSULTATION: Class III. COUNTS: Sponge and needle count correct x2. ANTIBIOTICS: The patient on scheduled IV Zosyn for acute active inflammatory process. INDICATIONS FOR PROCEDURE: This is a 32-year-old female who presents to the emergency department of [facility] complaining of worsening lower abdominal pain initially beginning in the periumbilical left lower quadrant and migrating down the right lower quadrant. The patient was noted to have a leukocytosis and CT scan consistent with acute appendicitis. Surgery was indicated and recommended. Risks, benefits, and alternatives were discussed with the patient in detail, who expressed understanding and consented to laparoscopic versus open appendectomy which was performed today on July 06, 2018. OPERATIVE NOTE: The patient taken to the operating room and placed on the operating table in supine position with left arm tucked. All bony prominences were well padded. SCDs were placed. No Pryor catheter was inserted given the patient voided just prior to entering the operating room. Preoperative time-out was taken identifying the patient, procedure, operative staff, and surgical staff. General anesthesia was induced and the patient was intubated. The abdomen was clipped, prepped, draped in standard surgical fashion. Local anesthetic was infiltrated through all skin incision sites. We began by making an infraumbilical incision using a fresh #11 scalpel, carried down to the fascia, which was elevated and incised. Entry into the abdomen was obtained using open Lana technique without complication. A 12 mm Lana trocar was inserted. The abdomen was insufflated to 12 to 15 mmHg. The patient tolerated the insufflation well. Secondary trocars were placed under direct visualization beginning with a 12 mm left lower quadrant trocar followed by a 5 mm suprapubic trocar. No injuries to the bladder or epigastric vessels noted. No complications from secondary trocar placement noted. The patient was placed in Trendelenburg position with left side down. The cecum was identified and the tenia was followed down to the confluence at which time the base of the appendix was noted. The remaining appendix was noted with some fibrinous debris, inflammatory reaction, but no perforation, abscess or other abnormality. The remainder of the abdomen was inspected. There was some serous fluid in the pelvis. The right upper quadrant, left upper quadrant, left lower quadrant were otherwise normal. Small bowel and omentum were otherwise normal. Liver looked healthy. The base of the appendix was grasped and a window was made in the mesentery. A laparoscopic linear stapler was then used to divide the base of the appendix. Following this, in a similar fashion the mesoappendix was divided using a laparoscopic linear stapler. The appendix was placed in endoscopic retrieval bag and removed through the left lower quadrant port site. The abdomen was inspected. The pelvis was irrigated and suctioned. Hemostasis was noted. No abnormalities noted. No immediate complications were seen. Secondary trocars were removed under direct visualization and the abdomen was desufflated followed by removal of the umbilical trocar site. The umbilical fascial trocar site incision was closed using a #0 [id number] Vicryl suture. The remaining skin incisions were cleansed and closed using 4-0 Monocryl subcuticular interrupted sutures. Skin glue and Steri-Strips were placed. The patient tolerated the procedure well, was extubated and taken to the postanesthetic care unit in stable condition. Camilo Corrales M.D. DR: Diana JOB#: [id number] CC: DENITA
[2018-07-06] MEDS: Docusate 100mg cap ORAL SCH (18:29)
--- NOTE | 2018-07-06 21:15 | Consultation ---
DATE OF CONSULTATION: 07/06/2018 CONSULTING PHYSICIAN: Christos Avila M.D. REFERRING PHYSICIAN: Charan Arreola M.D. PHYSICIAN ASSOCIATE CONSULTING ENGINEER: Lamberto Rivera REASON FOR CONSULTATION/CHIEF COMPLAINT: Abdominal pain. HISTORY OF PRESENT ILLNESS: This is a 32-year-old female, who is being seen for initial comprehensive pain management consultation here in [facility]. The patient had been having suprapubic and left upper quadrant abdominal pain since yesterday describing the pain as a pulling pain increasing with movement with no complaints of diarrhea, nausea, vomiting, urinary frequency, vaginal bleeding, or vaginal discharge. She has no history of surgery, found to have acute appendicitis, and was seen by Dr. Corrales, status post appendectomy. At this time, the patient was started on morphine 1 to 4 mg IV for moderate and severe pain as well as Morse 5 and 10 mg tablets as needed for breakthrough pain. We were consulted so that the patient would have adequate control while here in the hospital. PAST MEDICAL HISTORY: Denies. PAST SURGICAL HISTORY: Denies. SOCIAL HISTORY: Denies smoking tobacco, drinking alcohol, or IV drug abuse. ALLERGIES: No known drug allergies. MEDICATIONS: Tylenol and Mobic. REVIEW OF SYSTEMS: Denies rash, fever, chills, sweating, dizziness, drowsiness, or change in weight. No shortness of breath or chest pain. No nausea, vomiting, or blood in the stool or urine. No bowel or bladder incontinence. No dysuria. She is complaining of abdominal pain. PHYSICAL EXAMINATION: GENERAL: Alert, awake, and oriented. VITAL SIGNS: Blood pressure 114/66, heart rate is 85, oxygen saturation is 100%, respiratory rate is 18, and temperature is 98.2 degrees Fahrenheit. HEENT: PERRLA. NECK: Range of motion is full in all directions. No tenderness to paracervical muscle. No adenopathy. LUNGS: Decreased breath sounds bilaterally. HEART: S1 and S2. Regular. ABDOMEN: Distended with tenderness to palpation. Bandages applied. BACK: Range of motion is decreased in flexion and extension. EXTREMITIES: Upper and lower extremity range of motion is full in all directions. No cyanosis. No clubbing. No edema. Sensory is intact. Reflexes are unobtainable. No adenopathy. ASSESSMENT AND PLAN: This is a 32-year-old female with abdominal pain and appendicitis, status post appendectomy. The patient will continue on Morse and morphine for pain. A prescription for Morse 5/325 mg tablets written by the surgeon for discharge. The patient was discussed with Dr. Avila and he concurred. We will follow the patient. Thank you much for the courtesy of this consultation. Christos Avila M.D. GEOVANNY Rivera DR: FENG JOB#: [id number] CC:
--- NOTE | 2018-07-06 21:45 | History and Physical Report ---
DATE OF ADMISSION: 07/05/2018 HISTORY OF PRESENT ILLNESS: The patient came here as a consult for appendicitis, had lap choly for appendicitis, and elevated white blood cells. The patient had right-sided abdominal pain for one day with no associated nausea or vomiting. No diarrhea. No rectal bleeding. The patient had lap choly with Dr. Corrales. PAST MEDICAL HISTORY: Basically none. PAST SURGICAL HISTORY: None. SOCIAL HISTORY: The patient denies smoking. Does have history of marijuana use. Denies history of alcohol abuse. MEDICATIONS: She takes p.r.n. pain medications. ALLERGIES: No known allergies. FAMILY HISTORY: Noncontributory. REVIEW OF SYSTEMS: HEENT: Denies headaches. RESPIRATORY: Denies shortness of breath. Denies cough. CARDIOVASCULAR: Denies chest pain. GASTROINTESTINAL: Reports abdominal pain on the right side for one day. no nausea, vomiting, or diarrhea. No constipation. EXTREMITIES: Denies pain in lower extremities. CENTRAL NERVOUS SYSTEM: Denies change in vision or speech pattern. PHYSICAL EXAMINATION: VITAL SIGNS: Temperature is 98 degrees, pulse is 94, and blood pressure 114/66. HEENT: PERRLA. NECK: Supple. No lymphadenopathy. CHEST: Clear to auscultation. GASTROINTESTINAL: Soft with mild abdominal tenderness around the surgical site on the right side. No rebound. Abdomen is soft. Positive bowel sounds. EXTREMITIES: No edema. Reflexes on both sides. Moves all four extremities. LABORATORY AND DIAGNOSTIC DATA: Laboratory vides, WBC of 13.9, hemoglobin 12.3, and platelets 317,000. Sodium 135, potassium 3.4, glucose of 113, BUN of 8, and creatinine 0.9. ASSESSMENT AND PLAN: Appendicitis, status post lap choly and hypokalemia. I have asked Dr. Avila, Dr. Gastelum, Dr. Rodríguez, Dr. Corrales, and Dr. Neal to see the patient for the pain control as well as for the antibiotic if needed for appendicitis, abdominal pain, and as well as for treatment of hypokalemia. Charan Arreola M.D. DR: KRISTEN/CHUCK JOB#: [id number] CC:
[2018-07-06] MEDS ORDERED: D5 1/2NS 1,000 ML IV SCH (22:00)
--- NOTE | 2018-07-06 23:30 | Consultation ---
DATE OF CONSULTATION: 07/06/2018 INFECTIOUS DISEASE CONSULTATION CONSULTING PHYSICIAN: Steven Rodríguez M.D. PRIMARY ATTENDING PHYSICIAN: Charan Arreola M.D. REASON FOR CONSULT: Acute appendicitis. HISTORY OF PRESENT ILLNESS: The patient is a 32-year-old -[place] female, admitted yesterday from home, complaining of abdominal pain that was started on the day of admission, it was suprapubic lower quadrant, but become worse and radiate to right lower quadrant. The patient was in the ER, has leukocytosis. A CT scan of the abdomen and pelvis showed appendicitis. This morning, the patient had surgery with laparoscopic appendectomy. PAST MEDICAL HISTORY: Insignificant. MEDICATIONS: Getting Colace, morphine, Presho, Mylanta, diphenhydramine, metoclopramide, Zofran, and Zosyn. SOCIAL HISTORY: Single. She has two children. No smoking. No drinking. Occasionally use marijuana. PHYSICAL EXAMINATION: VITAL SIGNS: Temperature 98, pulse 89, and blood pressure 106/94. GENERAL APPEARANCE: A well-developed, in no acute distress. HEAD AND NECK: [place] conjunctivae. No oral lesions. HEART: S1 and S2, regular. LUNGS: Clear. ABDOMEN: Soft and nontender. Bowel sounds present. EXTREMITIES: No edema. LABORATORY AND DIAGNOSTIC DATA: WBC at the time of admission was 13.9, coming down to 12.5; hemoglobin 11.8; hematocrit 36.5, and platelets 305,000. Sodium 139, potassium 3.5, chloride 104, bicarbonate 26, BUN 6, creatinine 0.9, and glucose 97. CT scan of the abdomen and pelvis showed uncomplicated acute appendicitis. IMPRESSION: Acute appendicitis, status post laparoscopic appendectomy. Postoperatively, the patient is doing better and starting clear liquid. RECOMMENDATION: We will continue Zosyn preoperatively and at the time of discharge, can go home without any antibiotics. At the end of my exam, I thank Dr. Arreola for involving me in the care of this patient. Steven Rodríguez M.D. DR: LUZ JOB#: [id number] CC:
[2018-07-07] VITALS: BP 118/81
[2018-07-07 04:00] VITALS: BP 117/81
[2018-07-07] MEDS: D5 1/2NS 1,000 ML IV SCH (05:12)
[2018-07-07] MEDS: Piperacillin/Tazobactam 3.375 GM in D5W 110 ML IVPB SCH (05:12)
[2018-07-07] MEDS ORDERED: NS Irrig 1000ml ONE (07:00)
[2018-07-07] MEDS ORDERED: LR 1000ml ONE (07:00)
[2018-07-07] MEDS ORDERED: Sterile Water Irrig 1000ml IRRIG ONE (07:00)
[2018-07-07 08:00] VITALS: BP 115/84
[2018-07-07] MEDS: Docusate 100mg cap ORAL SCH (08:21)
--- NOTE | 2018-07-07 11:04 | General Progress Note ---
Progress Note Progress Note Surgery: doing very well. no n/v/f/c. comfortable. pain improved tolerating diet exam benign wound c/d/i s/p lap appy -diet as tolerated -rx written d/c home Camilo Corrales Jul 07, 2018 11:04
--- NOTE | 2018-07-07 11:48 | GI Progress Note ---
Assessment/Plan Problems: (1) S/P laparoscopic appendectomy ICD Codes: Z90.49 - Acquired absence of other specified parts of digestive tract SNOMED: 6425195, 15259802, [id number], [id number] (2) Post-operative nausea and vomiting ICD Codes: R11.2 - Nausea with vomiting, unspecified; Z98.890 - Other specified postprocedural states SNOMED: 8465691 Status: stable Status Narrative Discussed with Dr. Neal. Assessment/Plan okay for DC per GI standpoint symptomatic treatment at this time pain mgmt zofran prn adv to regular diet, tolerating well ppi fu labs The patient was seen and examined at bedside and all new and available data was reviewed in the patients chart. I agree with the above findings, impression and plan. (Patient seen earlier today. Signature stamp does not reflect patient encounter time.). - Venkata Neal MD Subjective Gastrointestinal/Abdominal: Reports: no symptoms Objective Last 24 Hour Vital Signs Date Time Temp Pulse Resp B/P (MAP) Pulse Ox O2 Delivery O2 Flow Rate FiO2 07/07/18 09:12 Room Air 07/07/18 08:00 98.5 96 20 115/84 (94) 97 98.5 07/07/18 04:00 98.1 75 20 117/81 (93) 97 98.1 07/07/18 00:00 99.0 83 20 118/81 (93) 96 99.0 07/06/18 21:00 Room Air 07/06/18 20:00 99.1 91 20 124/87 (99) 98 99.1 07/06/18 16:00 98.0 81 18 118/67 (84) 97 98.0 07/06/18 12:00 98.0 81 18 118/67 (84) 97 98.0 Intake and Output 07/06/18 07/07/18 19:00 07:00 Intake Total 1100 ml 977.5 ml Output Total 10 ml Balance 1090 ml 977.5 ml Intake Oral 240 ml IV Total 1100 ml 737.5 ml Output Estimated Blood Loss 10 ml # Voids 3 Height (Feet): 5 Height (Inches): 4.00 Weight (Pounds): 180 General Appearance: WD/WN, no apparent distress, alert Cardiovascular: normal rate Respiratory/Chest: normal breath sounds, no respiratory distress Abdominal Exam: normal bowel sounds, non tender, soft Extremities: normal range of motion, non-tender Roseanna Echevarria NP Jul 07, 2018 11:48
[2018-07-07 14:00] VITALS: BP 118/74
--- NOTE | 2018-07-07 14:00 | 48 Hour Post Anesthesia Eval ---
Post Anesthesia Evaluation Procedure: Laparoscopic appendectomy Date of Evaluation: Jul 07, 2018 Time of Evaluation: 09:30 Blood Pressure Systolic: 118 0: 74 Pulse Rate: 68 Respiratory Rate: 20 Temperature (Fahrenheit): 97.6 O2 Sat by Pulse Oximetry: 98 Airway: patent Nausea: No Vomiting: No Pain Intensity: 2 Hydration Status: adequate Cardiopulmonary Status: stable Mental Status/LOC: patient returned to baseline Follow-up Care/Observations: n/a Post-Anesthesia Complications: none Follow-up care needed: ready to discharge Aristeo Coles MD Jul 07, 2018 14:00
--- NOTE | 2018-07-08 08:28 | Discharge Summary ---
Discharge Summary Discharge Summary _ DATE OF ADMISSION: 07/05/2018 DATE OF DISCHARGE: 07/07/2018 CONSULTANTS: Dr. Camilo Rodríguez BRIEF HOSPITAL COURSE: Patient is a 32-year-old female, who presented to ED complaining of suprapubic and left upper quadrant abdominal pain. Pain was described to be pulling sensation worsened with movement. She denied any diarrhea, nausea, vomiting or chills. She denied dysuria or urinary frequency. Denied vaginal bleed or discharge. Patient is 2 para 2, with no history of prior abdominal surgery. On evaluation at ED, blood work showed elevated WBC. Urinalysis was negative. Urine hCG negative. LFTs and lipase were normal. She had a CT of the abdomen and pelvis that showed findings consistent with uncomplicated acute appendicitis. Surgery was consulted. Patient was placed on nothing by mouth and was started on IV fluids. She was started on Zosyn preoperatively. She then underwent laparoscopic appendectomy by Dr. Corrales. She tolerated procedure well. Surgery was uneventful. Postoperatively, she was given pain management. Diet was advanced and was tolerating diet well. Wound was clean, dry and intact. She was ambulating well with good pain control. She was eventually cleared for discharge home. FINAL DIAGNOSES: Acute appendicitis Status post laparoscopic appendectomy DISPOSITION: Patient was discharged home. DISCHARGE MEDICATIONS: Refer to Discharge Medication List. DISCHARGE INSTRUCTIONS: Follow up with PCP in a week. I have been assigned to dictate discharge summary on this account, and I was not involved in the patient's management. Nati Mejia NP Jul 08, 2018 08:28
== END 2018-07-07 11:00 | disposition home or self-care (01) | DRG 234 ==
LOC: EMR 16:42 → 4E 18:53 → EDBEDREQ 20:14
PROC: 0DTJ4ZZ Resection of Appendix, Percutaneous Endoscopic Approach (ICD-10-PCS; principal; 2018-07-05)
DX: K35.80 Unspecified acute appendicitis (principal); E87.6 Hypokalemia; R11.2 Nausea with vomiting, unspecified
CPT/HCPCS: 36415; 74176; 80053; 81003; 81025; 83690; 85007; 85025; 85610; 85730; 94003; 94150; 96361; 96365; 96375; 96376; 99285; J2405; J2710; J2765

== ENCOUNTER 2020-04-10 14:27 | Emergency (ER) | payer MEDICAID ==
[~2020-04-10] VITALS: Ht 162.6 cm; Wt 104.3 kg
[~2020-04-10 14:27] MED LIST changes: +AUGMENTIN 875-1 EAC1 ORAL; +IBUPROFEN600 MG ORAL; +NORCO 5-325 TA1 EACH ORAL; +TUMS200 M1 PO; +TYLENOL EXTRA500 MG ORAL
--- NOTE | 2020-04-10 14:55 | NUR ---
ED Nurse Note: Pt walked into ED for abdominal cramping and vaginal bleeding x2 days and possible miscarriage. Pt states she is 4 weeks . Pt has had previous pragnancies. She states she has been passing multiple blood clots. A&ox4, ambulatory.
--- NOTE | 2020-04-10 14:56 | Emergency Room Report ---
History of Present Illness General Chief Complaint: Complications Source: Patient Present Illness HPI Patient is a 34-year-old female G 10 P2 with 7 abortions she states she has a 15 -year-old and 9-year-old child at home who presents to the ER complaining of vaginal bleeding. Patient states that her LMP was March 03. She states that on Wednesday she started having lower abdominal cramping and spotting. She states that the bleeding has increased over the past several days. She states that she has not had any care and is not on vitamins. She denies fever or chills. She planes of mild nausea but denies any vomiting. She denies any dysuria, diarrhea or constipation. She denies any chest pain or shortness of breath. Allergies: Coded Allergies: No Known Allergies (Unverified , 10/15/19) COVID-19 Screening Contact w/high risk pt: No Experienced COVID-19 symptoms?: No COVID-19 Testing performed DIRECTOR OF FIELD COORDINATION: No Patient History Past Medical History: none Past Surgical History: appy Social History: Reports: drug use - Marijuana Last Menstrual Period: 03/03/20 Now: Yes : 10 Para: 2 Nursing Documentation-[facility] Past Medical History: No Stated History Review of Systems All Other Systems: negative except mentioned in HPI Physical Exam Vital Signs Date Time Temp Pulse Resp B/P (MAP) Pulse Ox O2 Delivery O2 Flow Rate FiO2 04/10/20 14:36 97.0 89 14 133/90 (104) 99 Room Air Sp02 EP Interpretation: reviewed, normal General Appearance: no apparent distress, alert, GCS 15, non-toxic Head: normocephalic, atraumatic Eyes: bilateral eye normal inspection, bilateral eye PERRL ENT: hearing grossly normal, normal pharynx, no angioedema, normal voice Neck: full range of motion, supple/symm/no masses Respiratory: chest non-tender, lungs clear, normal breath sounds, speaking full sentences Cardiovascular #1: regular rate, rhythm, no edema Gastrointestinal: no guarding, no rebound, other - Mild suprapubic tenderness to palpation Rectal: deferred Genitourinary: no CVA tenderness Musculoskeletal: normal range of motion, no calf tenderness Neurologic: family law specialist III-XII nml as tested Psychiatric: no suicidal/homicidal ideation Skin: no rash Lymphatic: no adenopathy Medical Decision Making Diagnostic Impression: Primary Impression: Vaginal bleeding affecting early Additional Impressions: UTI (urinary tract infection) Tetrahydrocannabinol (THC) dependence Hypokalemia Fibroid ER Course Patient's labs demonstrate mild hypokalemia potassium of 3.3. Patient has been given oral potassium chloride. Patient has dirty sample of urine but given the fact that her hCG is positive we will treat with Keflex and sent for culture. Patient's ultrasound demonstrates no IUP. I discussed with the patient her ultrasound findings and gave her a copy of her ultrasound findings. I told her that this could be very early versus an ectopic versus miscarriage. She demonstrated understanding. I told her that she needs a repeat ultrasound and hCG level within 5 days. I told her to follow-up with her ENVIRONMENTAL LEAD. Patient is being discharged home with vitamins as well as Keflex. After discussing risks and benefits of further diagnostics, treatment plans, as well as indications for and risks of admission, the patient is agreeable to being discharged home. I have explained that their evaluation and treatment in the emergency department today is an important step towards them achieving better health but that their evaluation today is not intended to replace further evaluation and treatment by a physician in their local clinic. I have explained that while the current findings suggest no immediate life threatening emergency they will require further evaluation and treatment by a physician of their choice in their area. They understand that it will be necessary for them to review the final reports of their ED visit with their clinic physician. We have reviewed indications for return to the Emergency Department. I have explained that additional time may need to pass and/or additional testing as an outpatient may be necessary before a definitive diagnosis can be made. They tell me they are willing to follow up as instructed within the timeframe I recommend. They appear to understand what we discussed. Additionally they understand that if they are unable to be seen by an outpatient physician they are welcome, and in fact should, return to the Emergency Department for a repeat evaluation. The patient is stable at time of discharge. Last Vital Signs Date Time Temp Pulse Resp B/P (MAP) Pulse Ox O2 Delivery O2 Flow Rate FiO2 04/10/20 14:36 97.0 89 14 133/90 (104) 99 Room Air Disposition: HOME, SELF-CARE Condition: Stable Scripts Vit/Iron Fumarate/Fa (CLASSIC TABLET) 1 Each Tablet 1 EACH PO DAILY for 90 Days, TAB Prov: Mckenzie Davis M.D. 04/10/20 Cephalexin* (KEFLEX*) 500 Mg Tablet 500 MG ORAL EVERY 8 HOURS for 5 Days, CAP Prov: Mckenzie Davis M.D. 04/10/20 Referrals: NON PHYSICIAN (PCP) Additional Instructions: The patient was provided with discharge instructions, notified to follow-up with a primary care doctor and or specialist in the next 24-48 hours, and to return to the ED if they have worsening of their symptoms. Please note that this report is being documented using [employer] technology. This can lead to erroneous entry secondary to incorrect interpretation by the dictating instrument. Mckenzie Davis M.D. Apr 10, 2020 14:56
[2020-04-10 15:03] LABS: APPEARANCE,URINE SLIGHTLY CLOUDY; BASOPHILS % (AUTO) 2.4 % (0.0-2.0); BILIRUBIN, URINE NEGATIVE (NEGATIVE); EOSINOPHILS % (AUTO) 4.4 % (0.0-3.0); GLUCOSE, URINE (UA) NEGATIVE (NEGATIVE); HEMATOCRIT 38.8 % (37.0-47.0); HEMOGLOBIN 12.3 G/DL (12.0-16.0); KETONES,URINE NEGATIVE (NEGATIVE); LEUKOCYTE ESTERASE ,URINE 1+ (NEGATIVE); LYMPHOCYTES % (AUTO) 33.6 % (20.0-45.0); MEAN CORPUSCULAR VOLUME 81 FL (80-99); MONOCYTES % (AUTO) 9.3 % (1.0-10.0); NEUTROPHILS % (AUTO) 50.3 % (45.0-75.0); NITRITE,URINE NEGATIVE (NEGATIVE); PH,URINE 7 (4.5-8.0); PLATELET COUNT 338 K/UL (150-450); PROTEIN,URINE 2+ (NEGATIVE); RED BLOOD COUNT 4.78 M/UL (4.20-5.40); RED CELL DISTRIBUTION WIDTH 13.6 % (11.6-14.8); UROBILINOGEN,URINE NORMAL MG/DL (0.0-1.0); WHITE BLOOD COUNT 5.1 K/UL (4.8-10.8)
[2020-04-10 15:05] LABS: COLOR,URINE RED
[2020-04-10 15:20] LABS: INR 0.9 (0.9-1.1)
[2020-04-10] MEDS ORDERED: Cephalexin 500mg cap ORAL ONE (15:45)
[2020-04-10] MEDS ORDERED: CEPHALEXIN500 M1 ORAL (16:03)
[2020-04-10] MEDS ORDERED: CLASSIC PRENAT1 EACH PO (16:04)
[2020-04-10 16:11] LABS: ANION GAP 7 mmol/L (5-15); BLOOD UREA NITROGEN 7 mg/dL (7-18); CALCIUM 8.6 MG/DL (8.5-10.1); CARBON DIOXIDE 27 MMOL/L (21-32); CHLORIDE 100 MMOL/L (98-107); CREATININE 0.9 MG/DL (0.55-1.30); POTASSIUM 3.3 MMOL/L (3.5-5.1); SODIUM 134 MMOL/L (136-145)
[2020-04-10 16:15] LABS: ALANINE AMINOTRANSFERASE 22 U/L (12-78); ALBUMIN 3.9 G/DL (3.4-5.0); ALBUMIN/GLOBULIN RATIO 0.9 (1.0-2.7); ALKALINE PHOSPHATASE 56 U/L (46-116); ASPARTATE AMINO TRANSFERASE 16 U/L (15-37); BILIRUBIN,TOTAL 0.4 MG/DL (0.2-1.0)
--- NOTE | 2020-04-10 16:25 | Diagnostic Imaging Report ---
Indication: Pelvic pain, vaginal bleeding, positive test, beta hCG 300 Technique: Transabdominal and transvaginal images of the pelvis. Doppler interrogation of the ovaries Comparison: No comparison sonograms. Reference made to abdomen pelvis CT scan 07/05/2018 Findings: Uterus measures 11.3 cm length by 5.8 cm AP. Endometrium measures 12 mm thick. No intrauterine demonstrated. Myometrium demonstrates a 4.8 cm fibroid in the lower uterine segment. The right ovary measures 3.6 cm in length. The left ovary cannot be visualized. The right ovary demonstrates normal flow on Doppler no ovarian mass. No free cul-de-sac fluid Impression: No intrauterine demonstrated. Differential considerations include very early and therefore not yet visible intrauterine , spontaneous , ectopic . Correlate with serial beta-hCGs and consider follow-up sonography as indicated Nonvisualized left ovary 4.8 cm probable uterine fibroid
--- NOTE | 2020-04-10 16:35 | NUR ---
ER DISCHARGE NOTE: Patient is cleared to be discharged per ERMD, pt is aox4, on room air, with stable vital signs. pt was given dc and prescription instructions, pt was able to verbalize understanding, pt id band and iv site removed without complications. pt is able to ambulate with steady gait. pt took all belongings. Pt instructed w/ f/u and UTI.
[2020-04-10 16:36] VITALS: BP 125/87
== END 2020-04-10 16:37 | disposition home or self-care (01) ==
LOC: EMR 14:50
DX: O67.9 Intrapartum hemorrhage, unspecified (principal); O23.41 Unspecified infection of urinary tract in pregnancy, first trimester; O99.321 Drug use complicating pregnancy, first trimester; F12.20 Cannabis dependence, uncomplicated; Z3A.00 Weeks of gestation of pregnancy not specified; E87.6 Hypokalemia; O34.11 Maternal care for benign tumor of corpus uteri, first trimester; D25.9 Leiomyoma of uterus, unspecified
CPT/HCPCS: 36415; 76801; 76817; 80053; 80307; 81003; 83690; 83735; 84702; 85025; 85610; 85730; 87086; 96360; J7030; Z7502; 99284; J8499

== ENCOUNTER 2020-06-09 18:32 | Emergency (ER) | payer MEDICAID ==
[~2020-06-09] VITALS: Ht 162.6 cm; Wt 90.7 kg
[~2020-06-09 18:32] MED LIST changes: +CEPHALEXIN500 M1 ORAL; +CLASSIC PRENAT1 EACH PO
--- NOTE | 2020-06-09 18:46 | NUR ---
ED Nurse Note: Pt walked into ED for sore throat 6/10 pain and coughing x4days. Pt has history of strep throat. Pt is alert and orientedx4, ambulatory. Pt has been seen by ERMD. Pt denies bodyaches, chills, nausea, vomiting, diarrhea.
[2020-06-09 18:48] VITALS: BP 137/96
--- NOTE | 2020-06-09 19:10 | NUR ---
ED Nurse Note: pt resting in bed, VSS no ss of distress noted. will continue to monitor.
--- NOTE | 2020-06-09 19:14 | Emergency Room Report ---
History of Present Illness General Chief Complaint: Sore Throat Source: Patient Present Illness HPI 34-year-old female presents to the emergency department complaining of 8 out of 10 severity right-sided sore throat x2 days. Patient denies fevers or chills. Patient reports she does have history of frequent tonsillitis. She denies changes in her voice. Patient reports that her son was sick last week. She denies cough, neck pain/stiffness, inability to swallow, excessive drooling, or difficulty breathing. She denies wheezing, chest pain or palpitations. She is not currently taking any medications. Allergies: Coded Allergies: No Known Allergies (Unverified , 10/15/19) COVID-19 Screening Contact w/high risk pt: No Experienced COVID-19 symptoms?: Yes COVID-19 Testing performed HIP HOP PERFORMERS: No Patient History Past Medical History: see triage record Past Surgical History: hysterectomy Pertinent Family History: none Last Menstrual Period: 05/10/20 Now: No Reviewed Nursing Documentation: PMH: Agreed; PSxH: Agreed Nursing Documentation-PMH Past Medical History: No Stated History Review of Systems All Other Systems: negative except mentioned in HPI Physical Exam Vital Signs Date Time Temp Pulse Resp B/P (MAP) Pulse Ox O2 Delivery O2 Flow Rate FiO2 06/09/20 18:37 98.2 77 16 141/98 (112) 99 Room Air Medical Decision Making PA Attestation Dr. Castellanos Is my supervising Physician whom patient management has been discus sed with. Diagnostic Impression: Primary Impression: Acute bacterial tonsillitis ER Course Pt. presents to the ED c/o : sore throat, tonsillar swelling, and nasal congestion x 2 days Ddx considered but are not limited to: pharyngitis, strep, HIP HOP PERFORMERS, ludwigs angina, URI Vital signs: are WNL, pt. is afebrile H&PE are most consistent with: pharyngitis presumed strep. ORDERS: None required at this time as the diagnosis is clinical ED INTERVENTIONS: none required at this time. DISCHARGE: At this time pt. is stable for d/c to home. Will provide printed patient care instructions, and any necessary prescriptions. Care plan and follow up instructions have been discussed with the patient prior to discharge. Last Vital Signs Date Time Temp Pulse Resp B/P (MAP) Pulse Ox O2 Delivery O2 Flow Rate FiO2 06/09/20 18:48 98.2 74 18 137/96 97 Room Air Disposition: HOME, SELF-CARE Condition: Stable Referrals: NON PHYSICIAN (PCP) Departure Forms: Return to Work Return to Work Date: Jun 13, 2020 Other Restrictions: May return Sooner if Symptoms have resolved. Return to Full Activity: Jun 13, 2020 Work Restrictions: None Patient Instructions: Tonsillitis Additional Instructions: Take medications as directed. Pay close attention to symptoms that would indicate development of a H[employer] H[employer] PERFORMERS which was discussed that includes worsening of sym ptoms, changes in voice, inability to swallow. Follow up with a Primary Care Provider in 3-5 days, even if your symptoms have resolved. Return sooner to ED if new symptoms occur, or current symptoms become worse. - Please note that this Emergency Department Report was dictated using [employer] technology software, occasionally this can lead to er roneous entry secondary to interpretation by the dictation equipment. Linette Melgar Jun 09, 2020 19:14
[2020-06-09] MEDS ORDERED: AUGMENTIN 875-1 EAC1 ORAL (19:18)
[2020-06-09] MEDS ORDERED: LIDOCAINE VISC100 ML ORAL (19:18)
[2020-06-09] MEDS ORDERED: IBUPROFEN600 M1 ORAL (19:18)
[2020-06-09 19:25] VITALS: BP 132/98
--- NOTE | 2020-06-09 19:25 | NUR ---
ER DISCHARGE NOTE: Patient is cleared to be discharged home per ERMD, pt is aox4, 99% on room air, with stable vital signs. pt was given dc and prescription instructions, pt was able to verbalize understanding, pt id band removed. pt is able to ambulate with steady gait. pt took all belongings.
== END 2020-06-09 19:25 | disposition home or self-care (01) ==
LOC: EMR 18:49
DX: J03.90 Acute tonsillitis, unspecified (principal); Z90.710 Acquired absence of both cervix and uterus
CPT/HCPCS: 96372; J1100; Z7502; 99283